=== PATIENT | male | born 1995 | race Caucasian/White ===

== ENCOUNTER 2022-02-25 09:21 | Emergency (ER) | payer BC ==
[2022-02-25 09:25] VITALS: BP 141/64
[2022-02-25] MEDS ORDERED: SERTRALINE50 MG PO (10:19)
[2022-02-25] MEDS ORDERED: LEVOTHYROXINE0.05 MG PO (10:19)
[2022-02-25] MEDS ORDERED: HCTZ 25MG25 MG PO (10:19)
[2022-02-25 10:29] LABS: BASO # 0.04 K/mm3 (0.02-0.10); EOS # 0.15 K/mm3 (0.04-0.40); EOS % 2.2 % (0.0-4.0); HEMATOCRIT 43.9 % (42.0-52.0); HEMOGLOBIN 14.9 g/dL (13.5-18.0); LYMPH# 1.61 K/mm3 (1.50-4.00); MEAN CELL VOLUME 87 fl (78-100); MEAN CORPUSCULAR HEMOGLOBIN 29 pg (27-31); MEAN CORPUSCULAR HGB CONC 34 g/dL (33-37); MEAN PLATELET VOLUME 9.9 fl (7.4-10.4); MONO # 0.44 K/mm3 (0.20-0.80); NEU # 4.58 K/mm3 (1.40-6.50); PLATELET COUNT 264 K/mm3 (130-400); RED BLOOD COUNT 5.06 M/mm3 (4.20-5.60); RED CELL DISTRIBUTION WIDTH 12.4 % (11.5-14.5); WHITE BLOOD COUNT 6.8 K/mm3 (4.8-10.8)
[2022-02-25 10:33] LABS: ALBUMIN 4.5 g/dL (3.5-5.0); POTASSIUM 4.2 mmol/L (3.5-5.1); SODIUM 142 mmol/L (136-145)
[2022-02-25 10:34] LABS: CALCIUM 9.1 mg/dL (8.3-10.5)
[2022-02-25 10:35] LABS: GLUCOSE 105 mg/dL (75-110); TOTAL PROTEIN 7.3 g/dL (6.4-8.3)
[2022-02-25 10:36] LABS: CARBON DIOXIDE 21 mmol/L (22-29)
[2022-02-25 10:37] LABS: TOTAL BILIRUBIN 0.6 mg/dL (0.2-1.2)
[2022-02-25 10:41] LABS: AST-SGOT 35 U/L (5-34)
[2022-02-25 10:42] LABS: ALT/SGPT 78 U/L (0-55)
[2022-02-25 10:48] LABS: ACETAMINOPHEN < 1 ug/mL; ALCOHOL IN-HOUSE < 10 mg/dL (<10)
[2022-02-25 11:16] LABS: PH-URINE 6.5 (5.0 - 8.0); URINE APPEARANCE HAZY; URINE BILIRUBIN NEGATIVE (NEGATIVE); URINE BLOOD NEGATIVE (NEGATIVE); URINE COLOR DK YELLOW; URINE GLUCOSE NEGATIVE (NEGATIVE); URINE KETONE NEGATIVE (NEGATIVE); URINE LEUKOCYTE ESTERASE NEGATIVE (NEGATIVE); URINE NITRATE NEGATIVE (NEGATIVE); URINE PROTEIN(semi-quant) NEGATIVE (NEGATIVE); URINE UROBILINOGEN NORMAL (NORMAL); URINE WBC 0-1 /hpf (0-3)
[2022-02-25 11:17] LABS: URINE MUCUS PRESENT (NOT PRESENT)
== END 2022-02-25 13:24 | disposition home or self-care (01) ==
LOC: ED 09:21
PROVIDERS: Physician Assistant
DX: F32.A Depression, unspecified (principal); R45.851 Suicidal ideations; Z28.311 Partially vaccinated for COVID-19